=== PATIENT | female | born 1980 | race Hispanic/Latino ===

== ENCOUNTER 2020-11-13 17:33 | Outpatient (CLI) | payer MEDICAID, OTHER ==
[2020-11-13] MEDS ORDERED: LACTATED RINGERS 2,000 ML ONE (17:46)
[2020-11-13] MEDS ORDERED: OXYTOCIN DRIP 60,000 MILLIUNITS/1,000 ML BAG IV ONE (17:46)
[2020-11-13] MEDS ORDERED: MINERAL OIL 30 ML ORAL LIQD PO PRN (17:49)
[2020-11-13] MEDS ORDERED: PROMETHAZINE 25 MG TAB PO PRN (17:49)
[2020-11-13] MEDS ORDERED: METHYLERGONOVINE MALEATE 0.2 MG/ML VIAL IM PRN (17:49)
[2020-11-13] MEDS ORDERED: TERBUTALINE 1 MG/1 ML INJ SUB-Q PRN (17:49)
[2020-11-13] MEDS ORDERED: miSOPROStol 200 MCG TAB PR PRN (17:49)
[2020-11-13] MEDS ORDERED: ONDANSETRON 4 MG/2 ML INJ IV PRN (17:49)
[2020-11-13] MEDS ORDERED: LIDOCAINE (2%) 20 MG/1 ML VIAL 20 ML MDV INFILTRATI ONE (17:49)
[2020-11-13] MEDS ORDERED: ePHEDrine SULFATE 50 MG/1 ML INJ IV PRN (17:49)
--- NOTE | 2020-11-13 17:51 | History and Physical Report ---
Medications and Allergies Allergies Allergy/AdvReac Type Severity Reaction Status Date / Time No Known Allergies Allergy Verified 07/03/13 04:49 Results Result Diagrams: 11/13/20 18:15
[2020-11-13] MEDS ORDERED: OXYTOCIN DRIP 30 UNITS/500 ML BAG IV SCH (18:00)
[2020-11-13] MEDS ORDERED: LACTATED RINGERS 1,000 ML IV SCH (18:00)
[2020-11-13] MEDS ORDERED: MORPHINE 2 MG/1 ML INJ ONE (18:12)
[2020-11-13 18:56] VITALS: BP 129/68
[2020-11-13] MEDS ORDERED: MORPHINE 2 MG/1 ML INJ IV ONE (19:10)
[2020-11-13] MEDS ORDERED: ONDANSETRON 4 MG/2 ML INJ IV ONE (19:11)
[2020-11-13 19:21] LABS: Mean Corpuscular HGB Conc 37 % (30-34); Mean Corpuscular Volume 82 fl (79-97); Red Blood Count 4.22 M/mm3 (3.65-5.03)
[2020-11-13 19:26] LABS: Hematocrit 34.6 % (30.3-42.9); Hemoglobin 12.8 gm/dl (10.1-14.3)
[2020-11-13 20:26] LABS: Platelet Count 788 K/mm3 (140-440)
== END 2020-11-13 17:34 | disposition home or self-care (01) ==
LOC: LDOR 17:33 → LD 17:33 → LDOR 17:34 → LD 17:49 → LDOR 17:49 → UNDOADMIN 17:49
PROVIDERS: ATTEND Obstetrics & Gynecology
DX: O47.03 False labor before 37 completed weeks of gestation, third trimester (principal); Z3A.38 38 weeks gestation of pregnancy
CPT/HCPCS: 36415; 85027; 86592; 86850; 86900; 86901; 96365; 96366; 96368; J2270; J2405; J2590; 96375